=== PATIENT | male | born 2000 | race Hispanic/Latino ===

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

== ENCOUNTER 2019-08-29 17:48 | Emergency (ER) | payer BC, MEDICAID ==
[~2019-08-29] VITALS: Ht 180.3 cm; Wt 70.3 kg
[2019-08-29] MEDS ORDERED: IBUPROFEN 600 MG TAB PO STA (18:27)
[2019-08-29] MEDS ORDERED: IBUPROFEN 400 MG TAB PO ONE (18:45)
--- NOTE | 2019-08-29 19:10 | Diagnostic Imaging Report ---
Cervical Spine, 5 views HISTORY: Pain COMPARISON: None. FINDINGS: On the lateral view, the cervical spine is visualized from the skull base to C7. Straightening of the normal cervical lordosis is either related to muscle spasm or positioning. No acute displaced fracture is identified involving the visualized cervical spine. Limited sensitivity for detection of subtle fractures, ligamentous, vascular and spinal cord abnormalities. The disc spaces appear well maintained. IMPRESSION: No acute radiographic abnormality. Signed by: Dr. Patricia Kiser M.D. on 08/29/2019 7:07 PM
[2019-08-29] MEDS ORDERED: ACETAMINOPHEN 325 MG TAB PO ONE (20:30)
== END 2019-08-29 20:25 | disposition home or self-care (01) ==
LOC: ER 17:48
DX: S16.1XXA Strain of muscle, fascia and tendon at neck level, initial encounter (principal); V43.52XA Car driver injured in collision with other type car in traffic accident, initial encounter; Y92.488 Other paved roadways as the place of occurrence of the external cause
CPT/HCPCS: 72050; 99283

== ENCOUNTER 2022-03-10 12:34 | Emergency (ER) | payer SELFPAY ==
[~2022-03-10] VITALS: Ht 180.3 cm; Wt 86.2 kg
[2022-03-10] MEDS ORDERED: SODIUM CHLORIDE 0.9% IRRIG 3,000 ML BAG IR STA (12:37)
[2022-03-10] MEDS ORDERED: FLUORESCEIN SOD(OPTH) 1 MG STRP OP ONE (12:45)
[2022-03-10] MEDS ORDERED: PROPARACAINE HCL 0.5% OP SOLN 15 ML BTL OP ONE (12:45)
[2022-03-10] MEDS ORDERED: EYE IRRIGATION (OPTH) 120 ML BTL ONE (12:55)
[2022-03-10] MEDS ORDERED: TETRACAINE HCL 0.5% OPTH SOLN 4 ML BTL ONE (12:55)
[2022-03-10] MEDS ORDERED: FLUORESCEIN SOD(OPTH) 1 MG STRP ONE (12:55)
[2022-03-10] MEDS ORDERED: POLYTRIM EYE DR10 ML OP (13:22)
[2022-03-10] MEDS ORDERED: TETRACAINE HCL 0.5% OPTH SOLN 4 ML BTL OP ONE (13:30)
== END 2022-03-10 13:49 | disposition home or self-care (01) ==
LOC: ER 12:37
DX: T15.01XA Foreign body in cornea, right eye, initial encounter (principal); X58.XXXA Exposure to other specified factors, initial encounter; Y99.0 Civilian activity done for income or pay
CPT/HCPCS: 99283